=== PATIENT | female | born 1980 | race Caucasian/White ===

== ENCOUNTER 2025-03-22 21:06 | Emergency (ER) | payer SELFPAY ==
[2025-03-22] MEDS: GI Cocktail Oral Solution 30 ML PO ONE (21:33)
[2025-03-22] MEDS ORDERED: Sodium Chloride 0.9% 10 ML Syringe FLUSH PRN (22:10)
[2025-03-22 22:11] LABS: BASOPHILS ABSOLUTE AUTO 0.02 K/uL (0.02-0.10); BASOPHILS PERCENT AUTO 0.3 % (0.0-0.5); EOSINOPHILS PERCENT AUTO 1.3 % (1.0-5.0); HEMATOCRIT 36.9 % (37.0-47.0); HEMOGLOBIN 12.1 g/dL (11.5-16.5); LYMPHOCYTES ABSOLUTE AUTO 3.49 K/uL (1.50-4.00); LYMPHOCYTES PERCENT AUTO 46.9 % (20.0-40.0); MEAN CORPUSCULAR HEMOGLOBIN 28.1 pg (27.0-32.0); MEAN CORPUSCULAR HGB CONC 32.8 g/dL (31.0-35.0); MEAN CORPUSCULAR VOLUME 86 fL (76-96); MEAN PLATELET VOLUME 11.2 fL (6.0-10.0); MONOCYTES ABSOLUTE AUTO 0.63 K/uL (0.20-0.80); MONOCYTES PERCENT AUTO 8.5 % (3.0-10.0); PLATELET COUNT,PLT 284 K/uL (150-500); RED BLOOD CELL COUNT 4.31 M/uL (3.80-5.80); RED CELL DISTRIBUTION WIDTH 13.6 % (11.0-16.0); WHITE BLOOD CELL COUNT,WBC 7.4 K/uL (4.0-11.0)
[2025-03-22] MEDS: Pantoprazole 40 MG Vial IVPUSH ONE (22:12)
[2025-03-22 22:22] LABS: A/G RATIO 1.1 (0.8-2.0); ALANINE AMINOTRANSFERASE,ALT 26 U/L (12-78); ALBUMIN 3.6 g/dL (3.4-5.0); ALKALINE PHOSPHATASE 65 U/L (46-116); ANION GAP 12.5 mmol/L (5.0-15.0); ASPARTATE AMNIOTRANSFERASE,AST 16 U/L (15-37); BILIRUBIN TOTAL 0.3 mg/dL (0.0-1.0); BLOOD UREA NITROGEN,BUN 13 mg/dL (8-26); BUN/CREATININE RATIO 15.3 (6-25); CALCIUM 8.6 mg/dL (8.5-10.1); CARBON DIOXIDE,CO2 28.5 mmol/L (21.0-32.0); CHLORIDE,CL 106 mmol/L (98-107); CREATININE 0.85 mg/dL (0.55-1.02); EST CRCL DRUG DOSING (CG) 80.71 mL/min; ESTIMATED GFR 88 mL/min (>60); GLUCOSE RANDOM 161 mg/dL (74-100); LIPASE 29 U/L (16-77); SODIUM,NA 143 mmol/L (136-145)
[2025-03-22 22:35] LABS: PTT,PARTIAL THROMBOPLSTIN TIME 23.4 SECONDS (24.4-33.2)
[2025-03-22 22:38] LABS: C-REACTIVE PROTEIN < 5.0 mg/L (<5.0); TROPONIN I HIGH SENSITIVITY < 4.0 pg/ml (<=60.4)
[2025-03-22 22:49] LABS: APPEARANCE,URINE CLOUDY (CLEAR); COLOR,URINE YELLOW; GLUCOSE,URINE NEGATIVE (NEGATIVE); KETONES,URINE NEGATIVE (NEGATIVE); PH,URINE 6.5 (5.0-8.0); PROTEIN,URINE TRACE mg/dL (NEGATIVE)
[2025-03-22 22:50] LABS: BACTERIA,URINE MODERATE /HPF; BILIRUBIN,URINE NEGATIVE (NEGATIVE); LEUKOCYTE ESTERASE,URINE TRACE (NEGATIVE); NITRITE,URINE POSITIVE (NEGATIVE); OCCULT BLOOD,URINE SMALL (NEGATIVE); RBC,URINE 0-5 /HPF; SQUAMOUS EPITHELIAL CELLS,UR FEW /HPF; UROBILINOGEN,URINE 0.2 E.U./dL (0.2-1.0)
[2025-03-22 22:51] LABS: PROTHROMBIN TIME 10.9 sec (9.0-11.5)
== END 2025-03-22 22:57 | disposition home or self-care (01) ==
LOC: LB.ED 21:06
DX: K21.9 Gastro-esophageal reflux disease without esophagitis (principal); Z91.018 Allergy to other foods; Z91.048 Other nonmedicinal substance allergy status
CPT/HCPCS: 36415; 71045; 80053; 81001; 83690; 84484; 85025; 85379; 85610; 85730; 86140; 93005; 96374; 99285; A9270; J2470; 93010; 99283